=== PATIENT | male | born 1990 | race Caucasian/White ===

== ENCOUNTER 2017-11-04 22:42 | Emergency (ER) | payer MEDICAID ==
[~2017-11-04] VITALS: Ht 172.7 cm; Wt 55.0 kg
[~2017-11-04 22:42] MED LIST: CLON-528 PO
[2017-11-05] MEDS ORDERED: ibuprofen tablet 400 MG TABLET PO ONE (00:05)
[2017-11-05] MEDS ORDERED: cyclobenzaprine 10mg tablet PO ONE (00:05)
[2017-11-05] MEDS ORDERED: CYCL-1 PO (00:07)
[2017-11-05 00:15] VITALS: BP 153/96
== END 2017-11-05 00:22 | disposition home or self-care (01) ==
LOC: ER 22:43
DX: S29.012A Strain of muscle and tendon of back wall of thorax, initial encounter (principal); M62.830 Muscle spasm of back; G89.29 Other chronic pain; F12.10 Cannabis abuse, uncomplicated; Z88.8 Allergy status to other drugs, medicaments and biological substances; Z79.899 Other long term (current) drug therapy; X58.XXXA Exposure to other specified factors, initial encounter; Y93.89 Activity, other specified; Y92.89 Other specified places as the place of occurrence of the external cause; Y99.8 Other external cause status
CPT/HCPCS: 99283

== ENCOUNTER 2018-05-19 12:18 | Emergency (ER) | payer MEDICAID ==
[~2018-05-19] VITALS: Ht 172.7 cm; Wt 55.1 kg
[~2018-05-19 12:18] MED LIST changes: +CYCL-1 PO
[2018-05-19 12:51] VITALS: BP 130/78
[2018-05-19] MEDS ORDERED: ondansetron/PF 4mg/2ml inj IV ONE (13:10)
[2018-05-19] MEDS ORDERED: normal saline 1000ML IV soln IVB ONE (13:10)
[2018-05-19] MEDS ORDERED: diphenhydrAMINE 50 mg/ml inj IV ONE (13:10)
[2018-05-19] MEDS ORDERED: ONDA8TAB9 PO (14:25)
== END 2018-05-19 15:25 | disposition home or self-care (01) ==
LOC: ER 12:19
DX: K52.89 Other specified noninfective gastroenteritis and colitis (principal); R11.2 Nausea with vomiting, unspecified; F12.90 Cannabis use, unspecified, uncomplicated; F11.90 Opioid use, unspecified, uncomplicated; G89.29 Other chronic pain; Z98.890 Other specified postprocedural states; Z88.8 Allergy status to other drugs, medicaments and biological substances; Z79.899 Other long term (current) drug therapy
CPT/HCPCS: 96361; 96374; 96375; 99283; J1200; J2405; J7030